=== PATIENT | male | born 1980 | race Caucasian/White ===

== ENCOUNTER 2017-03-12 15:36 | Inpatient (IN) | payer SELFPAY ==
[~2017-03-12] VITALS: Ht 175.3 cm; Wt 90.7 kg
[~2017-03-12 15:36] MED LIST: BUSP10TA PO; FLUO20CA8 PO; LORA10TA3 PO; MULT-208 PO
[2017-03-12] MEDS ORDERED: IV NORMAL SALINE 1000ML BAG 1,000 ML IV ONE (16:00)
--- NOTE | 2017-03-12 16:03 | PHYS DOC ---
Past Medical History Past Medical History: Alcoholism, Anxiety, Asthma, Depression, Seizure, Other Additional Past Medical Histor: ativan seeking behavior Past Surgical History: Other Additional Past Surgical Histo: BROKEN CLAVICLE Alcohol Use: Heavy Drug Use: None Adult General Chief Complaint Chief Complaint: ALCOHOL INTOXICATION HPI HPI Patient is a 36 year old male presenting to the emergency department for evaluation of withdrawal seizures. He says that he drinks daily and today he drank approximately a fifth of vodka and his last drink was at 11 PM and then said shortly prior to coming he had a withdrawal seizure. He says that he withdraws quite easily and that he is wanting to get help quitting alcohol. He denies any pain to me no fevers chills nausea vomiting. Review of Systems Review of Systems Constitutional: Denies fever or chills [] Eyes: Denies change in visual acuity, redness, or eye pain [] HENT: Denies nasal congestion or sore throat [] Respiratory: Denies cough or shortness of breath [] Cardiovascular: No additional information not addressed in HPI [] GI: Denies abdominal pain, nausea, vomiting, bloody stools or diarrhea [] : Denies dysuria or hematuria [] Musculoskeletal: Denies back pain or joint pain [] Integument: Denies rash or skin lesions [] Neurologic: Denies headache, focal weakness. + seizures Current Medications Current Medications Current Medications Medications (Trade) Dose Ordered Sig/Cynthia Start Time Stop Time Status Last Admin Dose Admin Lorazepam (Ativan) 1 mg 1X ONCE 03/12/17 16:00 03/12/17 16:02 DC 03/12/17 16:47 1 MG Sodium Chloride 1,000 ml @ 1,000 mls/hr 1X ONCE 03/12/17 16:00 03/12/17 16:59 DC 03/12/17 16:47 1,000 MLS/HR Allergies Allergies Allergies Coded Allergies Type Severity Reaction Last Updated Verified No Known Drug Allergies 04/09/15 No Physical Exam Physical Exam Constitutional: Well developed, well nourished, no acute distress, non-toxic appearance. [] HENT: Normocephalic, atraumatic, bilateral external ears normal, oropharynx moist, no oral exudates, nose normal. [] Eyes: PERRLA, EOMI, conjunctiva normal, no discharge. [] Neck: Normal range of motion, no tenderness, supple, no stridor. [] Cardiovascular:Heart rate regular rhythm, no murmur [] Lungs & Thorax: Bilateral breath sounds clear to auscultation [] Abdomen: Bowel sounds normal, soft, no tenderness, no masses, no pulsatile masses. [] Skin: Warm, dry, no erythema, no rash. [] Back: No tenderness, no CVA tenderness. [] Extremities: No tenderness, no cyanosis, no clubbing, ROM intact, no edema. [] Neurologic: Alert and oriented X 3, normal motor function, normal sensory function, no focal deficits noted. [] Psychologic: Affect normal, judgement normal, mood normal. [] Current Patient Data Vital Signs Vital Signs Date Time Temp Pulse Resp B/P (MAP) Pulse Ox O2 Delivery O2 Flow Rate FiO2 03/12/17 16:51 93 18 107/65 (79) 96 03/12/17 15:36 98.4 Room Air 98.4 Lab Values Laboratory Tests Test 03/12/17 16:25 White Blood Count 6.0 x10^3/uL (4.0-11.0) Red Blood Count 4.15 x10^6/uL (4.30-5.70) L Hemoglobin 12.2 g/dL (13.0-17.5) L Hematocrit 35.7 % (39.0-53.0) L Mean Corpuscular Volume 86 fL (79-100) Mean Corpuscular Hemoglobin 29 pg (25-35) Mean Corpuscular Hemoglobin Concent 34 g/dL (31-37) Red Cell Distribution Width 16.6 % (11.5-14.5) H Platelet Count 346 x10^3/uL (140-400) Neutrophils (%) (Auto) 50 % (31-73) Lymphocytes (%) (Auto) 37 % (24-48) Monocytes (%) (Auto) 6 % (0-9) Eosinophils (%) (Auto) 5 % (0-3) H Basophils (%) (Auto) 1 % (0-3) Neutrophils # (Auto) 3.0 x10^3uL (1.8-7.7) Lymphocytes # (Auto) 2.3 x10^3/uL (1.0-4.8) Monocytes # (Auto) 0.4 x10^3/uL (0.0-1.1) Eosinophils # (Auto) 0.3 x10^3/uL (0.0-0.7) Basophils # (Auto) 0.1 x10^3/uL (0.0-0.2) Sodium Level 142 mmol/L (136-145) Potassium Level 4.0 mmol/L (3.5-5.1) Chloride Level 106 mmol/L (98-107) Carbon Dioxide Level 30 mmol/L (21-32) Anion Gap 6 (6-14) Blood Urea Nitrogen 12 mg/dL (8-26) Creatinine 1.0 mg/dL (0.7-1.3) Estimated GFR (Cockcroft-Gault) 84.1 BUN/Creatinine Ratio 12 (6-20) Glucose Level 103 mg/dL (70-99) H Calcium Level 8.1 mg/dL (8.5-10.1) L Magnesium Level 2.3 mg/dL (1.8-2.4) Total Bilirubin 0.3 mg/dL (0.2-1.0) Aspartate Amino Transferase (AST) 17 U/L (15-37) Alanine Aminotransferase (ALT) 22 U/L (16-63) Alkaline Phosphatase 46 U/L (46-116) Creatine Kinase 117 U/L (39-308) Total Protein 6.4 g/dL (6.4-8.2) Albumin 3.4 g/dL (3.4-5.0) Albumin/Globulin Ratio 1.1 (1.0-1.7) Salicylates Level < 2.8 mg/dL (2.8-20.0) L Salicylate Last Dose Date Unknown Salicylate Last Dose Time Unknown Urine Opiates Screen Neg (NEG) Urine Methadone Screen Neg (NEG) Acetaminophen Level < 2 mcg/ml (10-30) L Acetaminophen Last Dose Date Unknown Acetaminophen Last Dose Time Unknown Urine Barbiturates Pos (NEG) Urine Phencyclidine Screen Neg (NEG) Urine Amphetamine/Methamphetamine Neg (NEG) Urine Benzodiazepines Screen Neg (NEG) Urine Cocaine Screen Neg (NEG) Urine Cannabinoids Screen Neg (NEG) Ethyl Alcohol Level 213 mg/dL (0-10) H Urine Ethyl Alcohol Pos (NEG) Laboratory Tests 03/12/17 16:25 Laboratory Tests 03/12/17 16:25 EKG EKG [] Radiology/Procedures Radiology/Procedures [] Course & Med Decision Making Course & Med Decision Making Patient will have his labs checked will give 1 mg Ativan and some fluids and then have Carlos of the PACT team talk to him. Carlos spoke to patient and drained and told me that no facility will accept him as he withdraws very easily and no facility is willing to manage his seizures. Patient is requesting detox so he'll be admitted for further observation and treatment. Diego Disclaimer Diego Disclaimer This electronic medical record was generated, in whole or in part, using a voice recognition dictation system. Departure Departure Impression: Primary Impression: Alcohol withdrawal Disposition: ADMITTED INPATIENT Admitting Physician: Ciara Bonilla Condition: IMPROVED Referrals: NO PCP (PCP) KYM CALDERON DO March 12, 2017 16:03
[2017-03-12 16:49] LABS: BASO # 0.1 x10^3/uL (0.0-0.2); BASO % 1 % (0-3); EOS % 5 % (0-3); HEMATOCRIT 35.7 % (39.0-53.0); HEMOGLOBIN 12.2 g/dL (13.0-17.5); LYMPH # 2.3 x10^3/uL (1.0-4.8); LYMPH % 37 % (24-48); MEAN CORPUSCULAR HEMOGLOBIN 29 pg (25-35); MEAN CORPUSCULAR HGB CONC 34 g/dL (31-37); MEAN CORPUSCULAR VOLUME 86 fL (79-100); MONO % 6 % (0-9); NEUT % 50 % (31-73); PLATELET COUNT 346 x10^3/uL (140-400); RED BLOOD COUNT 4.15 x10^6/uL (4.30-5.70); RED CELL DISTRIBUTION WIDTH 16.6 % (11.5-14.5)
[2017-03-12 16:55] LABS: BARBITURATES POS (NEG); BENZODIAZEPINES NEG (NEG); CANNABINOIDS NEG (NEG); COCAINE NEG (NEG); METHADONE NEG (NEG); OPIATES NEG (NEG); PHENCYCLIDINE NEG (NEG)
[2017-03-12 17:07] LABS: CALCIUM 8.1 mg/dL (8.5-10.1); GFR 84.1
[2017-03-12 17:13] LABS: ETHANOL 213 mg/dL (0-10)
[2017-03-12 17:14] LABS: ALBUMIN 3.4 g/dL (3.4-5.0); ALBUMIN/GLOBULIN RATIO 1.1 (1.0-1.7); MAGNESIUM 2.3 mg/dL (1.8-2.4); TOTAL BILIRUBIN 0.3 mg/dL (0.2-1.0); TOTAL PROTEIN 6.4 g/dL (6.4-8.2)
[2017-03-12] MEDS ORDERED: ONDANSETRON PF 4 MG/2 ML VIAL. IV PRN (17:45)
[2017-03-12 19:51] VITALS: BP 127/84
[2017-03-12] MEDS ORDERED: ARIP10TA13 PO (22:21)
[2017-03-12] MEDS ORDERED: ZOLP10TA PO (22:21)
[2017-03-12] MEDS ORDERED: PARO20TA55 PO (22:21)
[2017-03-12] MEDS ORDERED: LIBRIUM PO (22:30)
[2017-03-12 23:00] VITALS: BP 115/67
[2017-03-12] MEDS: ZOLPIDEM 5 MG TABLET. PO SCH (23:15)
[2017-03-12] MEDS ORDERED: ZOLPIDEM 5 MG TABLET. PO PRN (23:15)
[2017-03-12] MEDS: chlordiazePOXIDE HCL 25 MG CAPSULE PO SCH (23:48)
--- NOTE | 2017-03-12 23:51 | HP ---
ADMIT DATE: 03/12/2017 CHIEF COMPLAINT: Alcohol withdrawal. HISTORY OF PRESENT ILLNESS: The patient is a pleasant 36-year-old male presents with alcohol withdrawal ____ alcohol. I discussed the case with ER physician. We are going to admit the patient, give him IV benzos and vitamins and alcohol withdrawal protocol. PAST MEDICAL HISTORY: Alcoholism, asthma. ALLERGIES: None. FAMILY HISTORY: Alcoholism. SOCIAL HISTORY: He drinks, he smokes. MEDICATIONS: Reviewed, please refer to the MRAD. REVIEW OF SYSTEMS: GENERAL: No history of weight change, weakness or fevers. SKIN: No bruising, hair changes or rashes. EYES: No blurred, double or loss of vision. NOSE AND THROAT: No history of nosebleeds, hoarseness or sore throat. HEART: No history of palpitations, chest pain or shortness of breath on exertion. LUNGS: Denies cough, hemoptysis, wheezing or shortness of breath. GASTROINTESTINAL: Denies changes in appetite, nausea, vomiting, diarrhea or constipation. GENITOURINARY: No history of frequency, urgency, hesitancy or nocturia. NEUROLOGIC: Complains of weakness and shaking. PSYCHIATRIC: No history of panic, anxiety or depression. ENDOCRINE: No history of heat or cold intolerance, polyuria or polydipsia. EXTREMITIES: Denies muscle weakness, joint pain, pain on walking or stiffness. PHYSICAL EXAMINATION: VITAL SIGNS: Temperature afebrile, pulse 67, respirations 18, blood pressure 142/90. GENERAL: He is sleeping. He awakens. He is pretty weak. HEART: Distant S1, S2. LUNGS: Clear with slight right-sided wheezing. ABDOMEN: Soft. Decreased bowel sounds, no organomegaly. EXTREMITIES: No edema. SKIN: No rashes. PSYCHIATRIC: He is depressed. VASCULAR: Good capillary refill. ENDOCRINE: No thyromegaly. LYMPHATICS: No cervical nodes. HEMATOPOIETIC: No bruising. ASSESSMENT AND PLAN: Alcohol withdrawal. The patient has been admitted. We will give him IV benzos, daily vitamins, continue his home meds, p.r.n. nebulizers, PT, OT. MADISON REEVES DO DR: ADOLPH/jovanna JOB#: [id number] / [id number]
[2017-03-13 03:00] VITALS: BP 116/80
[2017-03-13 06:06] LABS: BASO % 1 % (0-3); EOS % 5 % (0-3); HEMOGLOBIN 12.2 g/dL (13.0-17.5); LYMPH # 1.8 x10^3/uL (1.0-4.8); LYMPH % 39 % (24-48); MEAN CORPUSCULAR HEMOGLOBIN 29 pg (25-35); MEAN CORPUSCULAR HGB CONC 34 g/dL (31-37); MEAN CORPUSCULAR VOLUME 87 fL (79-100); MONO % 7 % (0-9); NEUT % 48 % (31-73); PLATELET COUNT 306 x10^3/uL (140-400); RED BLOOD COUNT 4.14 x10^6/uL (4.30-5.70); RED CELL DISTRIBUTION WIDTH 16.7 % (11.5-14.5); WHITE BLOOD COUNT 4.7 x10^3/uL (4.0-11.0)
[2017-03-13 06:23] LABS: CREATININE 0.9 mg/dL (0.7-1.3); POTASSIUM 4.3 mmol/L (3.5-5.1)
[2017-03-13 07:00] VITALS: BP 148/115
[2017-03-13] MEDS: chlordiazePOXIDE HCL 25 MG CAPSULE PO SCH (08:14)
[2017-03-13] MEDS: ARIPiprazole 5 MG TABLET PO SCH (08:15)
[2017-03-13] MEDS: MULTIVITAMIN I-VITE TABLET. PO SCH (08:15)
[2017-03-13 11:00] VITALS: BP 129/90
--- NOTE | 2017-03-13 11:42 | PDOC ---
PROGRESS NOTES Chief Complaint Chief Complaint EtOH withdrawal History of Present Illness History of Present Illness Pt was lying in bed NAD Denies tremor, hallucinations, agitation. Would like to go home soon. Vitals Vitals Vital Signs Date Time Temp Pulse Resp B/P (MAP) Pulse Ox O2 Delivery O2 Flow Rate FiO2 03/13/17 07:00 98.2 96 22 148/115 (126) 98 Room Air 98.2 Physical Exam General: Alert, Oriented X3, No acute distress Heart: Regular rate, No murmurs Lungs: Clear, Other (no wheezing) Abdomen: Normal bowel sounds, Soft, No tenderness Extremities: No clubbing, No edema Skin: No rashes, No significant lesion Labs LABS Laboratory Tests Test 03/12/17 16:25 03/13/17 05:30 White Blood Count 6.0 x10^3/uL (4.0-11.0) 4.7 x10^3/uL (4.0-11.0) Red Blood Count 4.15 x10^6/uL (4.30-5.70) 4.14 x10^6/uL (4.30-5.70) Hemoglobin 12.2 g/dL (13.0-17.5) 12.2 g/dL (13.0-17.5) Hematocrit 35.7 % (39.0-53.0) 36.0 % (39.0-53.0) Mean Corpuscular Volume 86 fL (79-100) 87 fL (79-100) Mean Corpuscular Hemoglobin 29 pg (25-35) 29 pg (25-35) Mean Corpuscular Hemoglobin Concent 34 g/dL (31-37) 34 g/dL (31-37) Red Cell Distribution Width 16.6 % (11.5-14.5) 16.7 % (11.5-14.5) Platelet Count 346 x10^3/uL (140-400) 306 x10^3/uL (140-400) Neutrophils (%) (Auto) 50 % (31-73) 48 % (31-73) Lymphocytes (%) (Auto) 37 % (24-48) 39 % (24-48) Monocytes (%) (Auto) 6 % (0-9) 7 % (0-9) Eosinophils (%) (Auto) 5 % (0-3) 5 % (0-3) Basophils (%) (Auto) 1 % (0-3) 1 % (0-3) Neutrophils # (Auto) 3.0 x10^3uL (1.8-7.7) 2.3 x10^3uL (1.8-7.7) Lymphocytes # (Auto) 2.3 x10^3/uL (1.0-4.8) 1.8 x10^3/uL (1.0-4.8) Monocytes # (Auto) 0.4 x10^3/uL (0.0-1.1) 0.3 x10^3/uL (0.0-1.1) Eosinophils # (Auto) 0.3 x10^3/uL (0.0-0.7) 0.2 x10^3/uL (0.0-0.7) Basophils # (Auto) 0.1 x10^3/uL (0.0-0.2) 0.0 x10^3/uL (0.0-0.2) Sodium Level 142 mmol/L (136-145) 142 mmol/L (136-145) Potassium Level 4.0 mmol/L (3.5-5.1) 4.3 mmol/L (3.5-5.1) Chloride Level 106 mmol/L (98-107) 106 mmol/L (98-107) Carbon Dioxide Level 30 mmol/L (21-32) 27 mmol/L (21-32) Anion Gap 6 (6-14) 9 (6-14) Blood Urea Nitrogen 12 mg/dL (8-26) 13 mg/dL (8-26) Creatinine 1.0 mg/dL (0.7-1.3) 0.9 mg/dL (0.7-1.3) Estimated GFR (Cockcroft-Gault) 84.1 95.0 BUN/Creatinine Ratio 12 (6-20) Glucose Level 103 mg/dL (70-99) 86 mg/dL (70-99) Calcium Level 8.1 mg/dL (8.5-10.1) 8.0 mg/dL (8.5-10.1) Magnesium Level 2.3 mg/dL (1.8-2.4) Total Bilirubin 0.3 mg/dL (0.2-1.0) Aspartate Amino Transf (AST/SGOT) 17 U/L (15-37) Alanine Aminotransferase (ALT/SGPT) 22 U/L (16-63) Alkaline Phosphatase 46 U/L (46-116) Creatine Kinase 117 U/L (39-308) Total Protein 6.4 g/dL (6.4-8.2) Albumin 3.4 g/dL (3.4-5.0) Albumin/Globulin Ratio 1.1 (1.0-1.7) Salicylates Level < 2.8 mg/dL (2.8-20.0) Salicylate Last Dose Date Unknown Salicylate Last Dose Time Unknown Urine Opiates Screen Neg (NEG) Urine Methadone Screen Neg (NEG) Acetaminophen Level < 2 mcg/ml (10-30) Acetaminophen Last Dose Date Unknown Acetaminophen Last Dose Time Unknown Urine Barbiturates Pos (NEG) Urine Phencyclidine Screen Neg (NEG) Urine Amphetamine/Methamphetamine Neg (NEG) Urine Benzodiazepines Screen Neg (NEG) Urine Cocaine Screen Neg (NEG) Urine Cannabinoids Screen Neg (NEG) Ethyl Alcohol Level 213 mg/dL (0-10) Urine Ethyl Alcohol Pos (NEG) Review of Systems Review of Systems Denies chest pain Denies SOA Assessment and Plan Assessmemt and Plan Problems Medical Problems: (1) Alcohol withdrawal Status: Acute Assessment: Alcohol withdrawal Smoker Plan: Start banana bag Stop librium Continue home meds Check labs in am PT/OT Disp: probable d/c tomorrow if pt is stable and labs are wnl Problems: Comment Review of Relevant I have reviewed the following items zelalem (where applicable) has been applied. Labs Laboratory Tests Test 03/12/17 16:25 03/13/17 05:30 White Blood Count 6.0 x10^3/uL (4.0-11.0) 4.7 x10^3/uL (4.0-11.0) Red Blood Count 4.15 x10^6/uL (4.30-5.70) 4.14 x10^6/uL (4.30-5.70) Hemoglobin 12.2 g/dL (13.0-17.5) 12.2 g/dL (13.0-17.5) Hematocrit 35.7 % (39.0-53.0) 36.0 % (39.0-53.0) Mean Corpuscular Volume 86 fL (79-100) 87 fL (79-100) Mean Corpuscular Hemoglobin 29 pg (25-35) 29 pg (25-35) Mean Corpuscular Hemoglobin Concent 34 g/dL (31-37) 34 g/dL (31-37) Red Cell Distribution Width 16.6 % (11.5-14.5) 16.7 % (11.5-14.5) Platelet Count 346 x10^3/uL (140-400) 306 x10^3/uL (140-400) Neutrophils (%) (Auto) 50 % (31-73) 48 % (31-73) Lymphocytes (%) (Auto) 37 % (24-48) 39 % (24-48) Monocytes (%) (Auto) 6 % (0-9) 7 % (0-9) Eosinophils (%) (Auto) 5 % (0-3) 5 % (0-3) Basophils (%) (Auto) 1 % (0-3) 1 % (0-3) Neutrophils # (Auto) 3.0 x10^3uL (1.8-7.7) 2.3 x10^3uL (1.8-7.7) Lymphocytes # (Auto) 2.3 x10^3/uL (1.0-4.8) 1.8 x10^3/uL (1.0-4.8) Monocytes # (Auto) 0.4 x10^3/uL (0.0-1.1) 0.3 x10^3/uL (0.0-1.1) Eosinophils # (Auto) 0.3 x10^3/uL (0.0-0.7) 0.2 x10^3/uL (0.0-0.7) Basophils # (Auto) 0.1 x10^3/uL (0.0-0.2) 0.0 x10^3/uL (0.0-0.2) Sodium Level 142 mmol/L (136-145) 142 mmol/L (136-145) Potassium Level 4.0 mmol/L (3.5-5.1) 4.3 mmol/L (3.5-5.1) Chloride Level 106 mmol/L (98-107) 106 mmol/L (98-107) Carbon Dioxide Level 30 mmol/L (21-32) 27 mmol/L (21-32) Anion Gap 6 (6-14) 9 (6-14) Blood Urea Nitrogen 12 mg/dL (8-26) 13 mg/dL (8-26) Creatinine 1.0 mg/dL (0.7-1.3) 0.9 mg/dL (0.7-1.3) Estimated GFR (Cockcroft-Gault) 84.1 95.0 BUN/Creatinine Ratio 12 (6-20) Glucose Level 103 mg/dL (70-99) 86 mg/dL (70-99) Calcium Level 8.1 mg/dL (8.5-10.1) 8.0 mg/dL (8.5-10.1) Magnesium Level 2.3 mg/dL (1.8-2.4) Total Bilirubin 0.3 mg/dL (0.2-1.0) Aspartate Amino Transf (AST/SGOT) 17 U/L (15-37) Alanine Aminotransferase (ALT/SGPT) 22 U/L (16-63) Alkaline Phosphatase 46 U/L (46-116) Creatine Kinase 117 U/L (39-308) Total Protein 6.4 g/dL (6.4-8.2) Albumin 3.4 g/dL (3.4-5.0) Albumin/Globulin Ratio 1.1 (1.0-1.7) Salicylates Level < 2.8 mg/dL (2.8-20.0) Salicylate Last Dose Date Unknown Salicylate Last Dose Time Unknown Urine Opiates Screen Neg (NEG) Urine Methadone Screen Neg (NEG) Acetaminophen Level < 2 mcg/ml (10-30) Acetaminophen Last Dose Date Unknown Acetaminophen Last Dose Time Unknown Urine Barbiturates Pos (NEG) Urine Phencyclidine Screen Neg (NEG) Urine Amphetamine/Methamphetamine Neg (NEG) Urine Benzodiazepines Screen Neg (NEG) Urine Cocaine Screen Neg (NEG) Urine Cannabinoids Screen Neg (NEG) Ethyl Alcohol Level 213 mg/dL (0-10) Urine Ethyl Alcohol Pos (NEG) Laboratory Tests Test 03/12/17 16:25 03/13/17 05:30 White Blood Count 6.0 x10^3/uL (4.0-11.0) 4.7 x10^3/uL (4.0-11.0) Red Blood Count 4.15 x10^6/uL (4.30-5.70) 4.14 x10^6/uL (4.30-5.70) Hemoglobin 12.2 g/dL (13.0-17.5) 12.2 g/dL (13.0-17.5) Hematocrit 35.7 % (39.0-53.0) 36.0 % (39.0-53.0) Mean Corpuscular Volume 86 fL (79-100) 87 fL (79-100) Mean Corpuscular Hemoglobin 29 pg (25-35) 29 pg (25-35) Mean Corpuscular Hemoglobin Concent 34 g/dL (31-37) 34 g/dL (31-37) Red Cell Distribution Width 16.6 % (11.5-14.5) 16.7 % (11.5-14.5) Platelet Count 346 x10^3/uL (140-400) 306 x10^3/uL (140-400) Neutrophils (%) (Auto) 50 % (31-73) 48 % (31-73) Lymphocytes (%) (Auto) 37 % (24-48) 39 % (24-48) Monocytes (%) (Auto) 6 % (0-9) 7 % (0-9) Eosinophils (%) (Auto) 5 % (0-3) 5 % (0-3) Basophils (%) (Auto) 1 % (0-3) 1 % (0-3) Neutrophils # (Auto) 3.0 x10^3uL (1.8-7.7) 2.3 x10^3uL (1.8-7.7) Lymphocytes # (Auto) 2.3 x10^3/uL (1.0-4.8) 1.8 x10^3/uL (1.0-4.8) Monocytes # (Auto) 0.4 x10^3/uL (0.0-1.1) 0.3 x10^3/uL (0.0-1.1) Eosinophils # (Auto) 0.3 x10^3/uL (0.0-0.7) 0.2 x10^3/uL (0.0-0.7) Basophils # (Auto) 0.1 x10^3/uL (0.0-0.2) 0.0 x10^3/uL (0.0-0.2) Sodium Level 142 mmol/L (136-145) 142 mmol/L (136-145) Potassium Level 4.0 mmol/L (3.5-5.1) 4.3 mmol/L (3.5-5.1) Chloride Level 106 mmol/L (98-107) 106 mmol/L (98-107) Carbon Dioxide Level 30 mmol/L (21-32) 27 mmol/L (21-32) Anion Gap 6 (6-14) 9 (6-14) Blood Urea Nitrogen 12 mg/dL (8-26) 13 mg/dL (8-26) Creatinine 1.0 mg/dL (0.7-1.3) 0.9 mg/dL (0.7-1.3) Estimated GFR (Cockcroft-Gault) 84.1 95.0 BUN/Creatinine Ratio 12 (6-20) Glucose Level 103 mg/dL (70-99) 86 mg/dL (70-99) Calcium Level 8.1 mg/dL (8.5-10.1) 8.0 mg/dL (8.5-10.1) Magnesium Level 2.3 mg/dL (1.8-2.4) Total Bilirubin 0.3 mg/dL (0.2-1.0) Aspartate Amino Transf (AST/SGOT) 17 U/L (15-37) Alanine Aminotransferase (ALT/SGPT) 22 U/L (16-63) Alkaline Phosphatase 46 U/L (46-116) Creatine Kinase 117 U/L (39-308) Total Protein 6.4 g/dL (6.4-8.2) Albumin 3.4 g/dL (3.4-5.0) Albumin/Globulin Ratio 1.1 (1.0-1.7) Salicylates Level < 2.8 mg/dL (2.8-20.0) Salicylate Last Dose Date Unknown Salicylate Last Dose Time Unknown Urine Opiates Screen Neg (NEG) Urine Methadone Screen Neg (NEG) Acetaminophen Level < 2 mcg/ml (10-30) Acetaminophen Last Dose Date Unknown Acetaminophen Last Dose Time Unknown Urine Barbiturates Pos (NEG) Urine Phencyclidine Screen Neg (NEG) Urine Amphetamine/Methamphetamine Neg (NEG) Urine Benzodiazepines Screen Neg (NEG) Urine Cocaine Screen Neg (NEG) Urine Cannabinoids Screen Neg (NEG) Ethyl Alcohol Level 213 mg/dL (0-10) Urine Ethyl Alcohol Pos (NEG) Medications Current Medications Lorazepam (Ativan) 1 mg 1X ONCE IV Last administered on 03/12/17 16:47; Start 03/12/17 at 16:00; Stop 03/12/17 at 16:02; Status DC Sodium Chloride 1,000 ml @ 1,000 mls/hr 1X ONCE IV Last administered on 16:47; Start 03/12/17 at 16:00; Stop 03/12/17 at 16:59; Status DC Ondansetron HCl (Zofran) 4 mg PRN Q8HRS PRN IV NAUSEA/VOMITING; Start 03/12/17 at 17:45; Stop 03/13/17 at 17:44 Lorazepam (Ativan) 2 mg PRN Q1HR PRN IV WITHDRAWAL; Start 03/12/17 at 17:45 Aripiprazole (Abilify) 10 mg DAILY PO Last administered on 03/13/17 08:15; Start 03/13/17 at 09:00 Zolpidem Tartrate (Ambien) 5 mg QHS PO ; Start 03/12/17 at 23:15 Chlordiazepoxide (Librium) 50 mg BID PO Last administered on 03/13/17 08:14; Start 03/13/17 at 00:00 Multivitamins/ Minerals (I-Tyrell) 1 tab DAILY PO Last administered on 03/13/17 08:15; Start 03/13/17 at 09:00 Zolpidem Tartrate (Ambien) 5 mg PRN QHS PRN PO INSOMNIA; Start 03/12/17 at 23: 15 Active Scripts Active Reported [Librium] 50 Mg PO BID Abilify (Aripiprazole) 10 Mg Tablet 10 Mg PO DAILY Ambien (Zolpidem Tartrate) 10 Mg Tablet 10 Mg PO HS Paxil (Paroxetine Hcl) 20 Mg Tablet 20 Mg PO DAILY Multi-Day Vitamins (Multivitamin) 1 Each Tablet 1 Each PO take first dose tommorrow morning 11-27-15 Vitals/I & O Vital Sign - Last 24 Hours 03/12/17 03/12/17 03/12/17 03/12/17 15:36 16:51 17:45 19:51 Temp 98.4 97.5 98.4 97.5 Pulse 99 93 88 95 Resp 23 18 18 B/P (MAP) 124/77 (93) 107/65 (79) 111/77 (88) 127/84 (98) Pulse Ox 94 96 96 98 O2 Delivery Room Air Room Air 03/12/17 03/12/17 03/13/17 03/13/17 20:26 23:00 03:00 07:00 Temp 97.9 97.9 98.2 97.9 97.9 98.2 Pulse 87 87 96 Resp 10 12 22 B/P (MAP) 115/67 (83) 116/80 (92) 148/115 (126) Pulse Ox 96 94 98 O2 Delivery Room Air Room Air Room Air Room Air Intake and Output 03/12/17 03/12/17 03/13/17 14:59 22:59 06:59 Intake Total 1120 ml Balance 1120 ml MADISON REEVES III DO March 13, 2017 11:42
[2017-03-13] MEDS ORDERED: MULTIVIT INFUSN,ADULT 4,VIT K 10 ML, FOLIC ACID 1 MG, THIAMINE 100 MG in IV NORMAL SALI... IV ONE (13:00)
[2017-03-13 15:00] VITALS: BP 125/92
[2017-03-13 19:59] VITALS: BP 131/93
[2017-03-13] MEDS: ZOLPIDEM 5 MG TABLET. PO SCH (20:39)
[2017-03-13 23:31] VITALS: BP 110/71
[2017-03-14 03:32] VITALS: BP 113/80
[2017-03-14 05:54] LABS: BASO % 1 % (0-3); EOS % 6 % (0-3); HEMATOCRIT 36.4 % (39.0-53.0); HEMOGLOBIN 12.1 g/dL (13.0-17.5); LYMPH # 2.1 x10^3/uL (1.0-4.8); LYMPH % 42 % (24-48); MEAN CORPUSCULAR HEMOGLOBIN 29 pg (25-35); MEAN CORPUSCULAR HGB CONC 33 g/dL (31-37); MEAN CORPUSCULAR VOLUME 88 fL (79-100); MONO % 7 % (0-9); NEUT % 44 % (31-73); PLATELET COUNT 287 x10^3/uL (140-400); RED BLOOD COUNT 4.14 x10^6/uL (4.30-5.70); RED CELL DISTRIBUTION WIDTH 16.3 % (11.5-14.5)
[2017-03-14 06:02] LABS: CALCIUM 8.3 mg/dL (8.5-10.1); CREATININE 0.9 mg/dL (0.7-1.3)
[2017-03-14 07:00] VITALS: BP 133/94
[2017-03-14] MEDS: MULTIVITAMIN I-VITE TABLET. PO SCH (08:00)
[2017-03-14] MEDS: ARIPiprazole 5 MG TABLET PO SCH (08:01)
[2017-03-14 11:00] VITALS: BP 124/83
--- NOTE | 2017-03-14 14:07 | PDOC ---
PROGRESS NOTES Chief Complaint Chief Complaint EtOH withdrawal History of Present Illness History of Present Illness Pt was lying in bed NAD, eating lunch Denies tremor, hallucinations, agitation. Would like to go home today. Vitals Vitals Vital Signs Date Time Temp Pulse Resp B/P (MAP) Pulse Ox O2 Delivery O2 Flow Rate FiO2 03/14/17 11:00 97.5 91 20 124/83 (97) 99 Room Air 97.5 Physical Exam General: Alert, Oriented X3, No acute distress Heart: Regular rate, No murmurs Lungs: Clear, Other (no wheezing) Abdomen: Normal bowel sounds, Soft, No tenderness Extremities: No clubbing, No edema Skin: No rashes, No significant lesion Labs LABS Laboratory Tests Test 03/14/17 05:05 White Blood Count 5.0 x10^3/uL (4.0-11.0) Red Blood Count 4.14 x10^6/uL (4.30-5.70) Hemoglobin 12.1 g/dL (13.0-17.5) Hematocrit 36.4 % (39.0-53.0) Mean Corpuscular Volume 88 fL (79-100) Mean Corpuscular Hemoglobin 29 pg (25-35) Mean Corpuscular Hemoglobin Concent 33 g/dL (31-37) Red Cell Distribution Width 16.3 % (11.5-14.5) Platelet Count 287 x10^3/uL (140-400) Neutrophils (%) (Auto) 44 % (31-73) Lymphocytes (%) (Auto) 42 % (24-48) Monocytes (%) (Auto) 7 % (0-9) Eosinophils (%) (Auto) 6 % (0-3) Basophils (%) (Auto) 1 % (0-3) Neutrophils # (Auto) 2.2 x10^3uL (1.8-7.7) Lymphocytes # (Auto) 2.1 x10^3/uL (1.0-4.8) Monocytes # (Auto) 0.3 x10^3/uL (0.0-1.1) Eosinophils # (Auto) 0.3 x10^3/uL (0.0-0.7) Basophils # (Auto) 0.0 x10^3/uL (0.0-0.2) Sodium Level 140 mmol/L (136-145) Potassium Level 4.0 mmol/L (3.5-5.1) Chloride Level 104 mmol/L (98-107) Carbon Dioxide Level 26 mmol/L (21-32) Anion Gap 10 (6-14) Blood Urea Nitrogen 14 mg/dL (8-26) Creatinine 0.9 mg/dL (0.7-1.3) Estimated GFR (Cockcroft-Gault) 95.0 Glucose Level 96 mg/dL (70-99) Calcium Level 8.3 mg/dL (8.5-10.1) Review of Systems Review of Systems Denies chest pain Denies SOA Assessment and Plan Assessmemt and Plan Problems Medical Problems: (1) Alcohol withdrawal Status: Acute Assessment: 1. Alcohol withdrawal 2. Smoker Plan: -D/C home today - pt [facility] -Continue home meds -Provided script to return to work -Instructed pt need to decrease EtOH consumption -F/u with pcp 1 week Problems: Comment Review of Relevant I have reviewed the following items zelalem (where applicable) has been applied. Labs Laboratory Tests Test 03/12/17 16:25 03/13/17 05:30 03/14/17 05:05 White Blood Count 6.0 x10^3/uL (4.0-11.0) 4.7 x10^3/uL (4.0-11.0) 5.0 x10^3/uL (4.0-11.0) Red Blood Count 4.15 x10^6/uL (4.30-5.70) 4.14 x10^6/uL (4.30-5.70) 4.14 x10^6/uL (4.30-5.70) Hemoglobin 12.2 g/dL (13.0-17.5) 12.2 g/dL (13.0-17.5) 12.1 g/dL (13.0-17.5) Hematocrit 35.7 % (39.0-53.0) 36.0 % (39.0-53.0) 36.4 % (39.0-53.0) Mean Corpuscular Volume 86 fL (79-100) 87 fL (79-100) 88 fL (79-100) Mean Corpuscular Hemoglobin 29 pg (25-35) 29 pg (25-35) 29 pg (25-35) Mean Corpuscular Hemoglobin Concent 34 g/dL (31-37) 34 g/dL (31-37) 33 g/dL (31-37) Red Cell Distribution Width 16.6 % (11.5-14.5) 16.7 % (11.5-14.5) 16.3 % (11.5-14.5) Platelet Count 346 x10^3/uL (140-400) 306 x10^3/uL (140-400) 287 x10^3/uL (140-400) Neutrophils (%) (Auto) 50 % (31-73) 48 % (31-73) 44 % (31-73) Lymphocytes (%) (Auto) 37 % (24-48) 39 % (24-48) 42 % (24-48) Monocytes (%) (Auto) 6 % (0-9) 7 % (0-9) 7 % (0-9) Eosinophils (%) (Auto) 5 % (0-3) 5 % (0-3) 6 % (0-3) Basophils (%) (Auto) 1 % (0-3) 1 % (0-3) 1 % (0-3) Neutrophils # (Auto) 3.0 x10^3uL (1.8-7.7) 2.3 x10^3uL (1.8-7.7) 2.2 x10^3uL (1.8-7.7) Lymphocytes # (Auto) 2.3 x10^3/uL (1.0-4.8) 1.8 x10^3/uL (1.0-4.8) 2.1 x10^3/uL (1.0-4.8) Monocytes # (Auto) 0.4 x10^3/uL (0.0-1.1) 0.3 x10^3/uL (0.0-1.1) 0.3 x10^3/uL (0.0-1.1) Eosinophils # (Auto) 0.3 x10^3/uL (0.0-0.7) 0.2 x10^3/uL (0.0-0.7) 0.3 x10^3/uL (0.0-0.7) Basophils # (Auto) 0.1 x10^3/uL (0.0-0.2) 0.0 x10^3/uL (0.0-0.2) 0.0 x10^3/uL (0.0-0.2) Sodium Level 142 mmol/L (136-145) 142 mmol/L (136-145) 140 mmol/L (136-145) Potassium Level 4.0 mmol/L (3.5-5.1) 4.3 mmol/L (3.5-5.1) 4.0 mmol/L (3.5-5.1) Chloride Level 106 mmol/L (98-107) 106 mmol/L (98-107) 104 mmol/L (98-107) Carbon Dioxide Level 30 mmol/L (21-32) 27 mmol/L (21-32) 26 mmol/L (21-32) Anion Gap 6 (6-14) 9 (6-14) 10 (6-14) Blood Urea Nitrogen 12 mg/dL (8-26) 13 mg/dL (8-26) 14 mg/dL (8-26) Creatinine 1.0 mg/dL (0.7-1.3) 0.9 mg/dL (0.7-1.3) 0.9 mg/dL (0.7-1.3) Estimated GFR (Cockcroft-Gault) 84.1 95.0 95.0 BUN/Creatinine Ratio 12 (6-20) Glucose Level 103 mg/dL (70-99) 86 mg/dL (70-99) 96 mg/dL (70-99) Calcium Level 8.1 mg/dL (8.5-10.1) 8.0 mg/dL (8.5-10.1) 8.3 mg/dL (8.5-10.1) Magnesium Level 2.3 mg/dL (1.8-2.4) Total Bilirubin 0.3 mg/dL (0.2-1.0) Aspartate Amino Transf (AST/SGOT) 17 U/L (15-37) Alanine Aminotransferase (ALT/SGPT) 22 U/L (16-63) Alkaline Phosphatase 46 U/L (46-116) Creatine Kinase 117 U/L (39-308) Total Protein 6.4 g/dL (6.4-8.2) Albumin 3.4 g/dL (3.4-5.0) Albumin/Globulin Ratio 1.1 (1.0-1.7) Salicylates Level < 2.8 mg/dL (2.8-20.0) Salicylate Last Dose Date Unknown Salicylate Last Dose Time Unknown Urine Opiates Screen Neg (NEG) Urine Methadone Screen Neg (NEG) Acetaminophen Level < 2 mcg/ml (10-30) Acetaminophen Last Dose Date Unknown Acetaminophen Last Dose Time Unknown Urine Barbiturates Pos (NEG) Urine Phencyclidine Screen Neg (NEG) Urine Amphetamine/Methamphetamine Neg (NEG) Urine Benzodiazepines Screen Neg (NEG) Urine Cocaine Screen Neg (NEG) Urine Cannabinoids Screen Neg (NEG) Ethyl Alcohol Level 213 mg/dL (0-10) Urine Ethyl Alcohol Pos (NEG) Laboratory Tests Test 03/14/17 05:05 White Blood Count 5.0 x10^3/uL (4.0-11.0) Red Blood Count 4.14 x10^6/uL (4.30-5.70) Hemoglobin 12.1 g/dL (13.0-17.5) Hematocrit 36.4 % (39.0-53.0) Mean Corpuscular Volume 88 fL (79-100) Mean Corpuscular Hemoglobin 29 pg (25-35) Mean Corpuscular Hemoglobin Concent 33 g/dL (31-37) Red Cell Distribution Width 16.3 % (11.5-14.5) Platelet Count 287 x10^3/uL (140-400) Neutrophils (%) (Auto) 44 % (31-73) Lymphocytes (%) (Auto) 42 % (24-48) Monocytes (%) (Auto) 7 % (0-9) Eosinophils (%) (Auto) 6 % (0-3) Basophils (%) (Auto) 1 % (0-3) Neutrophils # (Auto) 2.2 x10^3uL (1.8-7.7) Lymphocytes # (Auto) 2.1 x10^3/uL (1.0-4.8) Monocytes # (Auto) 0.3 x10^3/uL (0.0-1.1) Eosinophils # (Auto) 0.3 x10^3/uL (0.0-0.7) Basophils # (Auto) 0.0 x10^3/uL (0.0-0.2) Sodium Level 140 mmol/L (136-145) Potassium Level 4.0 mmol/L (3.5-5.1) Chloride Level 104 mmol/L (98-107) Carbon Dioxide Level 26 mmol/L (21-32) Anion Gap 10 (6-14) Blood Urea Nitrogen 14 mg/dL (8-26) Creatinine 0.9 mg/dL (0.7-1.3) Estimated GFR (Cockcroft-Gault) 95.0 Glucose Level 96 mg/dL (70-99) Calcium Level 8.3 mg/dL (8.5-10.1) Medications Current Medications Lorazepam (Ativan) 1 mg 1X ONCE IV Last administered on 03/12/17 16:47; Start 03/12/17 at 16:00; Stop 03/12/17 at 16:02; Status DC Sodium Chloride 1,000 ml @ 1,000 mls/hr 1X ONCE IV Last administered on 16:47; Start 03/12/17 at 16:00; Stop 03/12/17 at 16:59; Status DC Ondansetron HCl (Zofran) 4 mg PRN Q8HRS PRN IV NAUSEA/VOMITING; Start 03/12/17 at 17:45; Stop 03/13/17 at 17:44; Status DC Lorazepam (Ativan) 2 mg PRN Q1HR PRN IV WITHDRAWAL Last administered on 12:07; Start 03/12/17 at 17:45 Aripiprazole (Abilify) 10 mg DAILY PO Last administered on 03/14/17 08:01; Start 03/13/17 at 09:00 Zolpidem Tartrate (Ambien) 5 mg QHS PO Last administered on 03/13/17 20:39; Start 03/12/17 at 23:15 Chlordiazepoxide (Librium) 50 mg BID PO Last administered on 03/13/17 08:14; Start 03/13/17 at 00:00; Stop 03/13/17 at 11:30; Status DC Multivitamins/ Minerals (I-Tyrell) 1 tab DAILY PO Last administered on 03/14/17 08:00; Start 03/13/17 at 09:00 Zolpidem Tartrate (Ambien) 5 mg PRN QHS PRN PO INSOMNIA; Start 03/12/17 at 23: 15 Multivitamins 10 ml/Folic Acid 1 mg/Thiamine HCl 100 mg/Sodium Chloride 1,011.2 ml @ 1,000 mls/ hr 1X ONCE IV Last administered on 03/13/17t 12:52; Start at 13:00; Stop 03/13/17 at 14:00; Status DC Active Scripts Active Reported [Librium] 50 Mg PO BID Abilify (Aripiprazole) 10 Mg Tablet 10 Mg PO DAILY Ambien (Zolpidem Tartrate) 10 Mg Tablet 10 Mg PO HS Paxil (Paroxetine Hcl) 20 Mg Tablet 20 Mg PO DAILY Multi-Day Vitamins (Multivitamin) 1 Each Tablet 1 Each PO take first dose tommorrow morning 11-27-15 Vitals/I & O Vital Sign - Last 24 Hours 03/13/17 03/13/17 03/13/17 03/13/17 15:00 19:59 20:00 23:31 Temp 98.4 97.9 97.4 98.4 97.9 97.4 Pulse 72 106 66 Resp 20 20 18 B/P (MAP) 125/92 (103) 131/93 (106) 110/71 (84) Pulse Ox 97 97 96 O2 Delivery Room Air Room Air Room Air Room Air 03/14/17 03/14/17 03/14/17 03/14/17 03:32 07:00 08:00 11:00 Temp 97.8 97.5 97.5 97.8 97.5 97.5 Pulse 73 86 91 Resp 18 20 20 B/P (MAP) 113/80 (91) 133/94 (107) 124/83 (97) Pulse Ox 98 100 99 O2 Delivery Room Air Room Air Room Air Room Air Intake and Output 03/13/17 03/13/17 03/14/17 15:00 23:00 07:00 Intake Total 240 ml 1220 ml 1111.2 ml Output Total 1100 ml Balance 240 ml 120 ml 1111.2 ml CASTLE,NIAL K III DO March 14, 2017 14:07
== END 2017-03-14 14:48 | disposition home or self-care (01) | DRG 101 ==
LOC: ER 17:10 → 5 SOUTH 17:16
PROVIDERS: ADMIT Internal Medicine; ATTEND Internal Medicine
DX: G40.89 Other seizures (principal); F10.239 Alcohol dependence with withdrawal, unspecified; F17.200 Nicotine dependence, unspecified, uncomplicated; J45.909 Unspecified asthma, uncomplicated; R56.9 Unspecified convulsions; F32.9 Major depressive disorder, single episode, unspecified; F41.9 Anxiety disorder, unspecified
CPT/HCPCS: 36415; 80048; 80053; 82550; 83735; 85027; 96361; 96374; G0480; G0481; G6038; J2060; J7030; 80196; 99285-25